=== PATIENT | male | born 1975 | race Caucasian/White ===

== ENCOUNTER 2017-05-14 11:22 | Inpatient (IN) | payer MEDICAID ==
[~2017-05-14] VITALS: Ht 175.3 cm; Wt 70.0 kg
[2017-05-14 11:44] LABS: BASOPHILS 0.7 % (0-2); EOSINOPHILS 8.4 % (0-7); HEMATOCRIT 43.1 % (42.0-54.0); HEMOGLOBIN 15.2 g/dL (13.5-17.5); LYMPHOCYTES 29.7 % (15-50); MCH 32.9 pg (26.0-34.0); MCHC 35.3 g/dL (31.0-37.0); MCV 93.3 fL (80.0-100.0); MEAN PLATELET VOLUME 13.1 fL (7.4-10.4); MONOCYTES 7.7 % (2-11); NEUTROPHILS 53.5 % (40-80); RBC 4.62 10x6/uL (4.20-6.10); RDW 13.3 % (11.5-14.5); WBC 5.5 10x3/uL (4.8-10.8)
[2017-05-14 11:54] LABS: PLATELET COUNT 37 10x3/uL (130-400)
[2017-05-14 11:59] LABS: ALBUMIN 3.7 g/dL (3.4-5.0); ALKALINE PHOSPHATASE 132 U/L (46-116); ALT (SGPT) 19 U/L (10-68); BILIRUBIN - TOTAL 0.48 mg/dL (0.2-1.3); CALC OSMOLALITY 281 mosm/kg (275-300); CALCIUM 8.4 mg/dL (8.5-10.1); CARBON DIOXIDE 26.3 mmol/L (21.0-32.0); CHLORIDE - SERUM 106 mmol/L (98-107); CREATININE - SERUM 1.5 mg/dL (0.6-1.3); GLUCOSE 76 mg/dL (74-106); POTASSIUM - SERUM 4.4 mmol/L (3.5-5.1); PROTEIN - SERUM 7.8 g/dL (6.4-8.2); SODIUM 141 mmol/L (136-145); UREA NITROGEN 17 mg/dL (7-18); eGFR NON AFRICAN AMERICAN 55 mL/min (90-120)
[2017-05-14 12:01] LABS: APTT 49.2 SECONDS (22.8-39.4); INR 0.91 (0.85-1.17); PROTIME 12.1 SECONDS (11.6-15.0)
[2017-05-14 12:07] LABS: PLATELET ESTIMATE DECREASED
[2017-05-14 12:21] LABS: APPEARANCE CLEAR (CLEAR); BILIRUBIN NEGATIVE (NEGATIVE); COLOR YELLOW (YELLOW); GLUCOSE NEGATIVE (NEGATIVE); KETONE NEGATIVE (NEGATIVE); LEUKOCYTE ESTERASE TRACE (NEGATIVE); NITRITE NEGATIVE (NEGATIVE); PROTEIN NEGATIVE (NEGATIVE); UROBILINOGEN NORMAL (NORMAL)
[2017-05-14 12:23] LABS: BACTERIA FEW /hpf (NONE SEEN); RED CELLS - URINE OCC /hpf (0-5)
[2017-05-14 12:33] LABS: UDS - AMPHET NEGATIVE QUAL (NEGATIVE); UDS - BARB NEGATIVE QUAL (NEGATIVE); UDS - BENZO NEGATIVE QUAL (NEGATIVE); UDS - COCAINE NEGATIVE QUAL (NEGATIVE); UDS - METH NEGATIVE QUAL (NEGATIVE); UDS - OPIATE NEGATIVE QUAL (NEGATIVE); UDS - PCP NEGATIVE QUAL (NEGATIVE); UDS - THC POSITIVE QUAL (NEGATIVE)
[2017-05-14 12:46] LABS: MAGNESIUM - SERUM 2.4 mg/dL (1.8-2.4)
[2017-05-14 12:54] LABS: TROPONIN-I 0.068 ng/mL (0.000-0.060)
[2017-05-14 13:45] LABS: CKMB 0.3 U/L (0.0-3.6); CREATINE KINASE 77 UL (21-232)
[2017-05-14 15:32] VITALS: BP 195/88; Ht 175.3 cm; Wt 70.0 kg
[2017-05-14 16:00] VITALS: BP 195/88
[2017-05-14 18:23] LABS: CKMB 0.3 U/L (0.0-3.6); CREATINE KINASE 68 UL (21-232)
--- NOTE | 2017-05-14 19:38 | NUR ---
RESUMED CARE OF PT, LYING IN BED RESPIRATIONS EVEN AND UNLABORED ON ROOM AIR. 60 SR ON TELEMETRY. RIGHT AC SALINE LOCKED. NO NEEDS VOICED AT THIS TIME. CALL LIT IN REACH. WILL CONTINUE TO MONITOR. SEE NURSE ASSESSMENT.
--- NOTE | 2017-05-14 20:59 | NUR ---
CHANDAN BARAHONAARNP NOTIFIED OF CONTINUED HTN 188/. NORVASC 10 GIVEN IN ER FOR . SHE WILL CHECK WITH ER DOCTOR, AWAITING CALL BACK.
[2017-05-14 21:30] VITALS: BP 188/77
[2017-05-14 23:44] LABS: CKMB 0.6 U/L (0.0-3.6); CREATINE KINASE 64 UL (21-232)
[2017-05-14 23:47] LABS: TROPONIN-I 0.073 ng/mL (0.000-0.060)
--- NOTE | 2017-05-15 00:42 | NUR ---
LYING IN BED WITH EYES CLOSED, CALL LIGHT IN REACH. WILL CONTINUE WITH PLAN OF CARE.
[2017-05-15 01:07] VITALS: BP 165/79
[2017-05-15 05:26] VITALS: BP 163/82
--- NOTE | 2017-05-15 06:48 | NUR ---
NO CHANGES FROM PREVIOUS ASSESSMENT, CALL LIGHT IN REACH.
[2017-05-15 07:35] LABS: BASOPHILS 0.8 % (0-2); EOSINOPHILS 9.3 % (0-7); HEMATOCRIT 43.2 % (42.0-54.0); HEMOGLOBIN 14.9 g/dL (13.5-17.5); IMMATURE GRANULOCYTES 0.2 % (0-5); MCH 31.6 pg (26.0-34.0); MCHC 34.5 g/dL (31.0-37.0); MCV 91.5 fL (80.0-100.0); MEAN PLATELET VOLUME 12.9 fL (7.4-10.4); MONOCYTES 7.6 % (2-11); NEUTROPHILS 54.1 % (40-80); RBC 4.72 10x6/uL (4.20-6.10); RDW 13.1 % (11.5-14.5); WBC 4.7 10x3/uL (4.8-10.8)
[2017-05-15 07:53] LABS: PLATELET COUNT 33 10x3/uL (130-400)
[2017-05-15 08:00] VITALS: BP 213/88
--- NOTE | 2017-05-15 08:00 | NUR ---
INTRODUCED MYSELF TO PT PRIMARY RN FOR TODAYS SHIFT. PT IS ALERT AND ORIENTED RESTING QUIELTY SITTING UP IN BED. 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 PT HAS SOME DELAY IN SPEECH BUT HARD TO TELL FROM BASELINE BECAUSE PT DID REPORT HE HAD SOME MILD MR AND WAS IN SPECIAL ED CLASSES. FAMILY CALLED TO CHECK ON HIM AND DID REPORT THIS IS NEW FOR PT SHE COULD TELL HIS SPEECH WAS SLIGHTLY SLURRED BUT BASELINE IS IMPAIRED WELL, PT IS JUST SLOW TO RESPOND AT TIMES AND LOSES TRAIN OF THOUGHT BUT NO SLURRED SPEECH IS NOTED TO ME. PT C/O SAHU AND WAS PROVIDED WITH TYLENOL TO TRY AND RELIEVE SOME OF THE TENSION. PT DENIES ANY FURTHER NEEDS AT THIS TIME. CL IN REACH, BED IN LOWEST, SIDE RAILS X2. WILL CPOC.
[2017-05-15 08:10] LABS: ALBUMIN 3.5 g/dL (3.4-5.0); ALKALINE PHOSPHATASE 119 U/L (46-116); ALT (SGPT) 17 U/L (10-68); CALC OSMOLALITY 276 mosm/kg (275-300); CALCIUM 8.3 mg/dL (8.5-10.1); CHLORIDE - SERUM 105 mmol/L (98-107); CKMB 0.5 U/L (0.0-3.6); CREATINE KINASE 47 UL (21-232); CREATININE - SERUM 1.5 mg/dL (0.6-1.3); GLUCOSE 79 mg/dL (74-106); POTASSIUM - SERUM 4.3 mmol/L (3.5-5.1); PROTEIN - SERUM 7.2 g/dL (6.4-8.2); SODIUM 138 mmol/L (136-145); UREA NITROGEN 19 mg/dL (7-18); eGFR NON AFRICAN AMERICAN 55 mL/min (90-120)
[2017-05-15 12:00] VITALS: BP 163/77
--- NOTE | 2017-05-15 13:59 | NUR ---
PT RESTING QUIETLY IN BED. PT DENIES ANY CURRENT PAIN OR NEEDS AND STATES SAHU HAS BEEN RELIEVED. PT SPEECH STILL SLOW TO RESPOND BUT NO OTHER DEFICITS NOTED. CL IN REACH, BED IN LOWEST, SIDE RAILS X2. WILL CTM.
[2017-05-15 16:00] VITALS: BP 149/71
--- NOTE | 2017-05-15 17:40 | NUR ---
LIPID PROFILE ORDERED FOR CVA CORE MEASURES. NO ANTIPLATELETS ORDERED R/T LOW PLATELETS AND IS A CONTRAINDICATION. PT UP AD SHAKA AND REFUSES TO WEAR HIS SCDS AT THIS TIME BUT HAS BEEN WEARING THEM BEFORE.
--- NOTE | 2017-05-15 18:21 | NUR ---
ENDING ROUNDS BEING COMPLETED. PT STATES HE HAD AN OVERALL GOOD DAY. PT DOES C/O SAHU RETURNING AND REQUESTING PRN TYLENOL AND WILL BE PROVIDED WITH IT. NO FURTHER NEURO DEFICITS NOTED OTHER THAN HIS SLIGHT SPEECH DELAY BUT COULD BE R/T BASELINE SLIGHT SLOW TO RESPOND. PT DENIES ANY FURTHER NEEDS AT THIS TIME. CL IN REACH, BED IN LOWEST, SIDE RAILS X2. WILL CPOC.
[2017-05-15 19:00] VITALS: BP 188/81
--- NOTE | 2017-05-15 20:04 | NUR ---
RESUMED CARE OF PT, LYING IN BED RESPIRATIONS EVEN AND UNLABORED ON ROOM AIR. 64 SR ON TELEMETYR. RIGHT AC SALINE LOCKED. NO NEEDS VOICED AT THIS TIME. CALL LIGHT IN REACH. SEE NURSE ASSESSMENT.
--- NOTE | 2017-05-15 22:50 | NUR ---
RECEIVED PT VIA FROM [facility], PT TO ROOM 1221, TRANSFERS SELF TO BED WITH NO DIFFICULTY, PT ORIENTED TO ROOM, BED IN LOW POSITION, SIDE RAILS X 2, CALL LIGHT IN REACH, PT DENIES NEEDS AT THIS TIME
[2017-05-16 00:50] VITALS: BP 160/78
--- NOTE | 2017-05-16 00:50 | NUR ---
PT RESTING WITH EYES CLOSED, AROUSES TO SOFT VERBAL STIMULATION, VS OBTAINED, NEURO CHECKS DONE, PT DENIES NEEDS OR PAIN AT THIS TIME
--- NOTE | 2017-05-16 02:24 | NUR ---
PT RESTING WITH EYES CLOSED, RESP QUIET, NO DISTRESS NOTED, LEFT UNDISTURBED AT THIS TIME
--- NOTE | 2017-05-16 04:24 | NUR ---
PT RESTING WITH EYES CLOSED, AROUSES TO SOFT VERBAL STIMULATION, VS OBTAINED, NEURO CHECKS DONE, PT DENIES NEEDS OR PAIN AT THIS TIME
[2017-05-16 04:25] VITALS: BP 157/70
--- NOTE | 2017-05-16 04:45 | NUR ---
TELEMETRY CALLED, LEADS OFF, THIS RN TO ROOM, NEW LEADS PLACED
--- NOTE | 2017-05-16 06:07 | NUR ---
PHARMACY NOTIFIED FOR MEDS
--- NOTE | 2017-05-16 06:57 | NUR ---
PT AWAKE, ADM PROTONIX PO PER MD ORDERS, SEE EMAR, PT DENIES NEEDS OR PAIN AT THIS TIME
[2017-05-16 07:02] LABS: BASOPHILS 0.4 % (0-2); EOSINOPHILS 6.6 % (0-7); HEMATOCRIT 43.9 % (42.0-54.0); HEMOGLOBIN 15.5 g/dL (13.5-17.5); IMMATURE GRANULOCYTES 0.2 % (0-5); LYMPHOCYTES 23.6 % (15-50); MCH 32.2 pg (26.0-34.0); MCHC 35.3 g/dL (31.0-37.0); MCV 91.3 fL (80.0-100.0); MONOCYTES 9.2 % (2-11); RBC 4.81 10x6/uL (4.20-6.10); RDW 13.2 % (11.5-14.5); WBC 5.6 10x3/uL (4.8-10.8)
[2017-05-16 07:05] LABS: PLATELET COUNT 27 10x3/uL (130-400)
--- NOTE | 2017-05-16 07:15 | NUR ---
SHIFT REPORT TO JENNY ESTRADA RN
[2017-05-16 07:24] LABS: ALBUMIN 3.6 g/dL (3.4-5.0); ANION GAP 14.7 mmol/L (8-16); BILIRUBIN - TOTAL 0.5 mg/dL (0.2-1.3); CALCIUM 8.1 mg/dL (8.5-10.1); CARBON DIOXIDE 24.5 mmol/L (21.0-32.0); CHOL - HDL RATIO 4.3 ratio (2.3-4.9); CREATININE - SERUM 1.3 mg/dL (0.6-1.3); LDL-HDL RATIO 2.7 ratio (1.5-3.5); POTASSIUM - SERUM 4.2 mmol/L (3.5-5.1); PROTEIN - SERUM 7.4 g/dL (6.4-8.2)
[2017-05-16 07:30] VITALS: BP 127/67
--- NOTE | 2017-05-16 11:28 | NUR ---
PATIENT RESTING IN HIS BED WATCHING TV. DENIES NEEDS.
[2017-05-16 14:35] VITALS: BP 145/77
--- NOTE | 2017-05-16 14:38 | NUR ---
PT LYING IN BED SUPINE, HOB APPROX 45 DEGREES. VS OBTAINED, SEE FLOWSHEET FOR DOC. PT PROVIDED WITH FRESH ICE WATER, DENIES NEEDS. SRUx2, CL IN REACH.
--- NOTE | 2017-05-16 17:00 | NUR ---
PATIENT SITTING UP IN BEDSIDE CHAIR IV SL FLUSHED WITH 10CC OF NS. NO SWELLING OR IRRITATION NOTED AROUND THE INSERTION SITE.
--- NOTE | 2017-05-16 19:00 | NUR ---
PT RESTING, AROUSES TO OPENING OF DOOR, INFORMED PT THAT I WILL BE BACK SHORTLY TO DO ASSESSMENT, PT VERBALIZES UNDERSTANDING, DENIES NEEDS AT THIS TIME
[2017-05-16 20:35] VITALS: BP 136/71
--- NOTE | 2017-05-16 20:35 | NUR ---
ASSESSMENT PER FLOW SHEET, VS OBTAINED, PT REPORTS FLATUS, BM TODAY AND VOIDING WITH NO DIFFICULTY, SALINE LOCK IN RIGHT AC INTACT WITH NO REDNESS OR EDEMA, INFORMED PT THAT I WILL ASSIST HIM GETTING UP TO SHOWER, PT VERBALIZES UNDERSTANDING, STATES "THAT WILL BE GREAT", SALINE LOCK COVERED, SHOWER CHAIR, SOAP/SHAMPOO, TOWELS, WASH CLOTHS, CLEAN GOWN, AND SOCKS PROVIDED, PT UP TO SHOWER, GAIT STEADY, BEDDING CHANGED, PT OUT OF SHOWER, CLEAN GOWN APPLIED, PT PUT SOCKS ON, PT BACK TO BED, TELEMETRY PLACED BACK ON, FRESH H20 SERVED, DENIES FURTHER NEEDS
--- NOTE | 2017-05-16 21:13 | NUR ---
PT REPORTS SLIGHT SAHU, ADM TYLENOL PO PER MD ORDERS, DENIES FURTHER NEEDS
--- NOTE | 2017-05-16 22:30 | NUR ---
PT RESTING WITH EYES CLOSED, RESP QUIET, NO DISTRESS NOTED, LEFT UNDISTURBED AT THIS TIME
[2017-05-17 00:30] VITALS: BP 141/74
--- NOTE | 2017-05-17 00:30 | NUR ---
PT RESTING WITH EYES CLOSED, AROUSES TO SOFT VERBAL STIMULATION, VS OBTAINED, DENIES NEEDS OR PAIN AT THIS TIME
--- NOTE | 2017-05-17 01:30 | NUR ---
PT RESTING WITH EYES CLOSED, RESP QUIET, NO DISTRESS NOTED, LEFT UNDISTURBED AT THIS TIME
--- NOTE | 2017-05-17 03:20 | NUR ---
PT RESTING WITH EYES CLOSED, RESP QUIET, NO DISTRESS NOTED, LEFT UNDISTURBED AT THIS TIME
--- NOTE | 2017-05-17 05:47 | NUR ---
PT RESTING WITH EYES CLOSED, AROUSES TO SOFT VERBAL STIMUALTION, VS OBTAINED, ADM 0600 MED PO PER MD ORDERS, PT DENIES NEEDS OR PAIN AT THIS TIME
[2017-05-17 05:48] VITALS: BP 147/70
--- NOTE | 2017-05-17 06:44 | NUR ---
PT UP TO BEDSIDE SCALE, OBTAINED WEIGHT, BACK TO BED, REQUESTED AND SERVED LEMON [employer] GRAN[employer] B[employer] SODA, DENIES FURTHER NEEDS
--- NOTE | 2017-05-17 07:00 | NUR ---
SHIFT REPORT TO JENNY ESTRADA RN
[2017-05-17 07:29] LABS: BASOPHILS 0.9 % (0-2); EOSINOPHILS 7.1 % (0-7); HEMATOCRIT 41.9 % (42.0-54.0); HEMOGLOBIN 14.7 g/dL (13.5-17.5); IMMATURE GRANULOCYTES 0.2 % (0-5); LYMPHOCYTES 28.7 % (15-50); MCH 32.1 pg (26.0-34.0); MCHC 35.1 g/dL (31.0-37.0); MCV 91.5 fL (80.0-100.0); MONOCYTES 8.4 % (2-11); NEUTROPHILS 54.7 % (40-80); RBC 4.58 10x6/uL (4.20-6.10); RDW 13.3 % (11.5-14.5); WBC 4.6 10x3/uL (4.8-10.8)
[2017-05-17 07:35] LABS: PLATELET COUNT 26 10x3/uL (130-400)
[2017-05-17 07:58] LABS: ALBUMIN 3.6 g/dL (3.4-5.0); ANION GAP 12.6 mmol/L (8-16); BILIRUBIN - TOTAL 0.58 mg/dL (0.2-1.3); CALCIUM 8.4 mg/dL (8.5-10.1); CARBON DIOXIDE 24.4 mmol/L (21.0-32.0); CREATININE - SERUM 1.2 mg/dL (0.6-1.3); PROTEIN - SERUM 7.4 g/dL (6.4-8.2)
--- NOTE | 2017-05-17 08:30 | NUR ---
PATEINT SITTING UP IN THE BEDSIDE CHAIR, DENIED NEEDS. HE STATES HTAT HE TOOK A SHOWER LAST NIGHT. EATING HIS BREAKFAST AT THIS TIME. CALL LIGHT IS WITHIN HIS REACH. ENCOURAGED TO CALL WITH ANY NEEDS. MONITORING.
[2017-05-17 08:40] VITALS: BP 164/81
--- NOTE | 2017-05-17 10:59 | NUR ---
PATIENT AMBULATING IN THE HALLWAY TO DESK. DENIES NEEDS, TOOK NEWSPAPER TO READ. BACK TO HIS ROOM. GAIT STABLE
--- NOTE | 2017-05-17 12:26 | NUR ---
PATIENT SITTING UP IN HIS BED WATCHING TV. DENIES NEEDS.
--- NOTE | 2017-05-17 12:44 | NUR ---
PATIENT OFF THE UNIT FOR BONE MARROW BIOPSY. WE DISCUSSED THE PURPOSE OF EXAM AND HE VOICES UNDERSTANDING, MAKING JOKE ABOUT HIS SELF BEING A MYSTERY.
[2017-05-17 13:21] LABS: HEPATITIS C ANTIBODY <0.1 (0.0-0.9)
--- NOTE | 2017-05-17 14:27 | NUR ---
ARISTEO RETURNED FROM [place] IN HIS BED FROM THE BONE MARROW BIOPSY. HE REQUESTS PAIN MEDICATION.
[2017-05-17 20:05] VITALS: BP 151/88
--- NOTE | 2017-05-17 20:05 | NUR ---
AWAKE DURING INITIAL ROUNDS. INTRODUCED SELF. V/S TAKEN. ASSESSMENT DONE. STATUS R/O TIA vs CVA. PT SITTING ON THE CHAIR TALKING ON THE PHONE. APPEARS COHERENT. SALINE LOCK TO R ac. PAIN LEVEL "12"/10 FROM SACRAL AREA--SITE FROM BONE MARROW BIOPSY.
--- NOTE | 2017-05-17 21:01 | NUR ---
AMBULATING IN THE BRANCH. GAIT STEADY.
--- NOTE | 2017-05-17 21:49 | NUR ---
TYLENOL 650mg PO GIVEN FOR PAIN CONTROL.
[2017-05-17 23:29] VITALS: BP 139/75
--- NOTE | 2017-05-18 | NUR ---
EYES CLOSED. LEFT UNDISTURBED.
--- NOTE | 2017-05-18 02:10 | NUR ---
APPEARS TO BE ASLEEP.
--- NOTE | 2017-05-18 06:02 | NUR ---
SLEPT FAIRLY WELL DURING THE NIGHT. CONTINUING PLAN OF CARE. ANTICIPATES DISCHARGE TODAY. INDUSTRIAL CHEMISTRY TEACHER HERE TO DRAW AM LAB.
[2017-05-18 06:27] LABS: EOSINOPHILS 8.1 % (0-7); HEMATOCRIT 40.6 % (42.0-54.0); HEMOGLOBIN 14.2 g/dL (13.5-17.5); IMMATURE GRANULOCYTES 0.3 % (0-5); LYMPHOCYTES 31.5 % (15-50); MCH 31.7 pg (26.0-34.0); MCV 90.6 fL (80.0-100.0); MONOCYTES 11.4 % (2-11); NEUTROPHILS 47.7 % (40-80); RBC 4.48 10x6/uL (4.20-6.10); RDW 13.2 % (11.5-14.5); WBC 3.9 10x3/uL (4.8-10.8)
[2017-05-18 06:36] LABS: PLATELET COUNT 20 10x3/uL (130-400)
[2017-05-18 06:54] LABS: ALBUMIN 3.6 g/dL (3.4-5.0); ANION GAP 15.6 mmol/L (8-16); BILIRUBIN - TOTAL 0.49 mg/dL (0.2-1.3); CARBON DIOXIDE 23.6 mmol/L (21.0-32.0); CREATININE - SERUM 1.3 mg/dL (0.6-1.3); POTASSIUM - SERUM 4.2 mmol/L (3.5-5.1); PROTEIN - SERUM 7.3 g/dL (6.4-8.2)
[2017-05-18 07:30] VITALS: BP 126/72
--- NOTE | 2017-05-18 07:30 | NUR ---
PT IS SITTING UP ON THE SIDE OF THE BED GETTING READY TO EAT BREAKFAST. HE OFFERS NO COMPLAINTS BUT WHEN ASKED ABOUT HIS PAIN LEVEL HE STAES A 12. I TOLD BETWEEEN 1 AND 10 AND HE STATES IT IS A 8 IN HIS BACK. GEN- AWAKE AND ALERT. LUNGS- CLEAR. HEART- RRR. ABD- SOFT, NONTENDER. EXT- ABLE TO MOVE ALL EXTREMITIES. ABLE TO SQUEEZE BOTH MY HANDS. BED IS LOW, SIDE RAILS UP X 2 AND CALL LIGHT IN REACH. SALINE LOCK R AC. PATENT.
--- NOTE | 2017-05-18 08:18 | NUR ---
PT IS RESTING IN BED. OFFERS NO COMPLAINTS AT THIS TIME.
--- NOTE | 2017-05-18 09:31 | NUR ---
PT IS SITTING UP ON SIDE OF BED, TALKING ON PHONE. HE STATES THAT HE WOULD LIKE TYLENOL FOR HIS BACK PAIN WHICH HE RATES AN 8/10. BED IS LOW, SIDE RAILS UP X 2 AND CALL LIGHT IN REACH.
--- NOTE | 2017-05-18 09:48 | NUR ---
PT IS SITTING UP ON SIDE OF BED. 0900 MEDS GIVEN. HE STATES HIS PAIN IS NOW A 6/10.
--- NOTE | 2017-05-18 09:57 | NUR ---
* Is the patient Alert and Oriented? Yes 0 * How many steps to enter\exit or inside your home? 4 0 * PCP Dr. Guerra 0 * Pharmacy [facility] 0 * Preadmission Environment Home Alone 0 * ADLs Independent 0 * List name and contact numbers for known caregivers / representatives who currently or will assist patient after discharge: Ford Quevedo [phone] 0 * Additional services required to return to the preadmission environment? No 0 * Can the patient safely return to the preadmission environment? Yes 0 * Has this patient been hospitalized within the prior 30 days at any hospital? No 05/18/2017 9:58 DCP: Discharge Planning Patient Name: STERLING HERNANDEZ Admission Status: ER Accout number: [id number] Admission Date: 05-14-2017 : 1975 Admission Diagnosis: Attending: ANDREW Current LOS: 4 Anticipated DC Date: 05-20-2017 Planned Disposition: Home Primary Insurance: MEDICAID [place] Discharge Planning Comments: CM met with patient to assess dc plans/needs. Patient states he lives alone & is independent with all ADL's. He has not had home health services and does not use any assistive devices for mobility. He does not drive. He states his cousin, Emy, takes him shopping and to medical appointments. He states she also assists with any other needs he may have. At me, he plans to return home. He may benefit from home health evaluation after discharge. CM will follow. Trading Specialist: Carline Reed
--- NOTE | 2017-05-18 11:40 | NUR ---
PT IS SITTING UP IN CHAIR. OFFERS NO COMPLAINTS.
--- NOTE | 2017-05-18 13:27 | NUR ---
PT IS UP AMBULATING IN THE HALLWAY. HE STATES HE IS WAITING FOR HIS DR TO TELL HIM WHAT IS GOING ON. PT BACK TO ROOM AND LYING IN BED.
--- NOTE | 2017-05-18 14:00 | NUR ---
AMELIA DE OLIVEIRA WITH DR QUIÑONEZ WAS HERE TO SEE PT. SHE DID NOT THE PLAN OF NOW, BUT STATES HIS PLATELETS WERE 20. DR TIJERINA HAS BEEN CONSULTED AND SAW PT YESTERDAY.
--- NOTE | 2017-05-18 15:00 | NUR ---
PT IS IN HIS ROOM SITTING UP IN CHAIR. HE IS PLAYING DOMINOES WITH SOME FRIENDS AND IS REALLY ENJOYING IT.
--- NOTE | 2017-05-18 16:16 | NUR ---
LAB IS HERE TO DRAW HIS BLOOD. PT BACK TO BED. BED IS LOW, SIDE RAILS UP X 2 AND CALL LIGHT IN REACH.
--- NOTE | 2017-05-18 16:59 | NUR ---
DR TIJERINA HERE TO SEE PT. NEW ORDERS NOTED. PLATLETS WERE ORDERED TO GIVE PT. I UNIT OF PLATELETS.
--- NOTE | 2017-05-18 17:59 | NUR ---
PLATELET APHERESIS INITIATED. WITNESSED WITH FLAVIO MAYO RN. VSS
[2017-05-18 18:55] VITALS: BP 139/74
--- NOTE | 2017-05-18 18:55 | NUR ---
PT RECEIVED LYING IN BED AAOX3 WATCHING TV AT THIS TIME. PT RATES PAIN 0/10 AT THIS TIME. S/L NOTED TO RIGHT A/C DRESSING CDI. HEART RRR. LUNG SOUNDS CLEAR BILATERALLY. BOWEL SOUNDS ACTIVE X4 QUADRENTS. PEDAL PULSES EQUAL BILATERALLY. VSS. PT DENIES NEEDS AT THIS TIME. BED LOW. PHONE AND CALL LIGHT IN REACH. SRX2.
--- NOTE | 2017-05-18 20:09 | NUR ---
PT LYING IN BED WATCHING TV AT THIS TIME. DENIES NEEDS. BED LOW. PHONE AND CALL LIGHT IN REACH. SRX2.
--- NOTE | 2017-05-18 21:07 | NUR ---
TYLENOL PO GIVEN AT THIS TIME PER PT REQUEST FOR PAIN PT RATES 06/05. PT DENIES OTHER NEEDS. BED LOW. PHONE AND CALL LIGHT IN REACH. SRX2.
--- NOTE | 2017-05-18 22:04 | NUR ---
PT RESTING QUIETLY AT THIS TIME WITH EYES CLOSED. RESPIRATIONS EVEN, NON-LABORED. NO ACUTE DISTRESS NOTED AT THIS TIME. BED LOW. PHONE AND CALL LIGHT IN REACH. SRX2.
[2017-05-19] VITALS: BP 159/67
--- NOTE | 2017-05-19 | NUR ---
PT RESTING QUIETLY AT THIS TIME WITH EYES CLOSED. AROUSED EASILY. PT DENIES NEEDS. BED LOW. PHONE AND CALL LIGHT IN REACH. SRX2.
[2017-05-19 04:06] VITALS: BP 167/77
--- NOTE | 2017-05-19 04:06 | NUR ---
PT RESTING QUIETLY AT THIS TIME WITH EYES CLOSED. AROUSED EASILY. DENIES NEEDS. BED LOW. PHONE AND CALL LIGHT IN REACH. SRX2.
--- NOTE | 2017-05-19 06:09 | NUR ---
PROTONIX PO GIVEN PER ORDERS AT THIS TIME. PT DENIES NEEDS. BED LOW. PHONE AND CALL LIGHT IN REACH. SRX2.
[2017-05-19 06:50] LABS: EOSINOPHILS 8.2 % (0-7); HEMOGLOBIN 13.7 g/dL (13.5-17.5); LYMPHOCYTES 29.3 % (15-50); MCH 31.7 pg (26.0-34.0); MCHC 35.1 g/dL (31.0-37.0); MCV 90.3 fL (80.0-100.0); MEAN PLATELET VOLUME 11.2 fL (7.4-10.4); MONOCYTES 11.1 % (2-11); NEUTROPHILS 50.4 % (40-80); RBC 4.32 10x6/uL (4.20-6.10); WBC 4.2 10x3/uL (4.8-10.8)
[2017-05-19 07:12] LABS: ALBUMIN 3.5 g/dL (3.4-5.0); ANION GAP 12.6 mmol/L (8-16); BILIRUBIN - TOTAL 0.6 mg/dL (0.2-1.3); CARBON DIOXIDE 25.4 mmol/L (21.0-32.0); CREATININE - SERUM 1.3 mg/dL (0.6-1.3); PROTEIN - SERUM 7.1 g/dL (6.4-8.2)
[2017-05-19 07:27] LABS: FOLATE (FOLIC ACID) - SERUM 12.7 ng/mL (>3.0)
[2017-05-19 07:28] LABS: PLATELET COUNT 30 10x3/uL (130-400)
--- NOTE | 2017-05-19 08:30 | NUR ---
PATIENT GIVEN MORNING MEDICATION. HE C/O BACK PAIN THAT HE RATES AN 8 BUT STATES THAT OVERALL HE FEELS MUCH BETTER THAN HE DID THIS MORNING. OFFERED TOWELS AND CLEAN LINENS FOR A SHOWER. HE SAID THAT HE WILL GET UP LATER.
[2017-05-19 08:53] VITALS: BP 154/84
--- NOTE | 2017-05-19 09:11 | NUR ---
PATIENT RATES HIS BACK PAIN A 3. STATES THAT TE MEDICATION DID HELP WITH THE BACK DISCOMFORT.
--- NOTE | 2017-05-19 12:30 | NUR ---
PATIENT HAS HAD A SHOWER AND EATEN LUNCH. IV TO THE RIGHT FA IS SORE AND RED AROUND THE INSERTION SITE. REMOVED IT WITH THE CATHETER FULLY INTACT AND NEW IV SL PLACED IN THE LEFT AC ON THE SECOND ATTEMPT. PATIENT DENIES NEEDS. CALL LIGHT AND COUSIN AT THE BEDSIDE.
--- NOTE | 2017-05-19 14:31 | NUR ---
PLATLETS INFUSED WITHOUT S/S OF REACTION. WAREHOUSE SHIPPING ASSOCIATE HERE TO ASSESS. QUESTIONS ANSWERED WITH HIS COUSIN AT THE BEDSIDE. HE LIVES INDEPENDENTLY, THEY SPEAK DAILY. THEY WERE RAISED TOGETHER AND SHE IS THE ONE THAT BROUGHT HIM INTO THE HOSPITAL.
--- NOTE | 2017-05-19 15:31 | NUR ---
PATIENT UP AMBULATING IN THE HALLS. HE IS WITHOUT STATED NEEDS.
--- NOTE | 2017-05-19 18:22 | NUR ---
PT ARRIVED TO UNIT AND HAS BEEN ORIENTED TO ROOM. PT IS A&O RESTING COMFORTABLY ON HIS BED. VITALS 98.5 TEMP, RR 16 AND RRR ON RA. BP 177/76 VIA R.ARM, HR 63, AND O2 SATS OF 95% PT DENIES ANY CURRENT PAIN OR NEEDS. CL IN REACH, BED IN LOWEST, SIDE RAILS X2. WILL CTM.
[2017-05-19 19:00] VITALS: BP 168/78
--- NOTE | 2017-05-19 20:12 | NUR ---
PT RESTING QUIETLY, C/O MILD DISCOMFORT WHERE PROCEDURE WAS DONE EARLIER TODAY. PT ALERT & ORIENTED, NO S/S OF ACUTE DISTRESS.
[2017-05-20] VITALS: BP 141/70
--- NOTE | 2017-05-20 01:10 | NUR ---
PT RESTING QUIETLY ON RIGHT SIDE, NO S/S OF ACUTE DISTRESS, EYES CLOSED, RESPIRATIONS REGULAR AND UNLABORED.
--- NOTE | 2017-05-20 03:04 | NUR ---
PT RESTING QUIETLY, RESPIRATIONS REGULAR AND UNLABORED.
[2017-05-20 04:00] VITALS: BP 166/76
[2017-05-20 06:40] LABS: BASOPHILS 0.8 % (0-2); EOSINOPHILS 8.5 % (0-7); HEMATOCRIT 38.1 % (42.0-54.0); HEMOGLOBIN 13.3 g/dL (13.5-17.5); LYMPHOCYTES 31.6 % (15-50); MCH 31.8 pg (26.0-34.0); MCHC 34.9 g/dL (31.0-37.0); MCV 91.1 fL (80.0-100.0); MEAN PLATELET VOLUME 12.6 fL (7.4-10.4); MONOCYTES 11.3 % (2-11); NEUTROPHILS 47.8 % (40-80); RBC 4.18 10x6/uL (4.20-6.10); WBC 3.6 10x3/uL (4.8-10.8)
[2017-05-20 06:44] LABS: PLATELET COUNT 38 10x3/uL (130-400)
--- NOTE | 2017-05-20 06:49 | NUR ---
PT RESTING QUIETLY, RESPIRATIONS REGULAR AND UNLABORED.
[2017-05-20 06:52] LABS: ALBUMIN 3.5 g/dL (3.4-5.0); ANION GAP 11.9 mmol/L (8-16); BILIRUBIN - TOTAL 0.52 mg/dL (0.2-1.3); CALCIUM 8.2 mg/dL (8.5-10.1); CARBON DIOXIDE 27.1 mmol/L (21.0-32.0); CREATININE - SERUM 1.3 mg/dL (0.6-1.3); PROTEIN - SERUM 7.4 g/dL (6.4-8.2)
[2017-05-20 08:00] VITALS: BP 161/71
--- NOTE | 2017-05-20 08:20 | NUR ---
ASSESSMENT DONE. DENIES NEEDS.
--- NOTE | 2017-05-20 10:14 | NUR ---
RESTS IN BED WITH CALL LIGHT IN REACH. DOM NEEDS AT THIS TIME. WILL CONT. PLAN OF CARE.
[2017-05-20 12:00] VITALS: BP 171/69
[2017-05-20 16:00] VITALS: BP 147/75
--- NOTE | 2017-05-20 17:42 | NUR ---
WITHOUT CHANGES OR DISTRESS NOTED AT THIS TIME. FAMILY AT SIDE.
[2017-05-20 19:00] VITALS: BP 144/75
--- NOTE | 2017-05-20 19:20 | NUR ---
PT UP AROUND ROOM. IV TO LEFT AC SALINE LOCKED. DENIES PAIN OR NEEDS AT THIS TIME. IV TO LEFT AC SALINE LOCKED. WILL CONT TO MONITOR.
[2017-05-21] VITALS: BP 147/63
[2017-05-21 04:00] VITALS: BP 143/58
[2017-05-21 05:31] LABS: BASOPHILS 0.4 % (0-2); HEMATOCRIT 36.6 % (42.0-54.0); HEMOGLOBIN 12.8 g/dL (13.5-17.5); LYMPHOCYTES 29.3 % (15-50); MCH 31.4 pg (26.0-34.0); MCV 89.7 fL (80.0-100.0); MEAN PLATELET VOLUME 13.3 fL (7.4-10.4); MONOCYTES 11.4 % (2-11); NEUTROPHILS 57.9 % (40-80); RBC 4.08 10x6/uL (4.20-6.10); RDW 12.6 % (11.5-14.5)
[2017-05-21 05:36] LABS: PLATELET COUNT 38 10x3/uL (130-400)
[2017-05-21 05:47] LABS: ALBUMIN 3.5 g/dL (3.4-5.0); ANION GAP 13.4 mmol/L (8-16); BILIRUBIN - TOTAL 0.41 mg/dL (0.2-1.3); CALCIUM 8.4 mg/dL (8.5-10.1); CARBON DIOXIDE 23.4 mmol/L (21.0-32.0); CREATININE - SERUM 1.2 mg/dL (0.6-1.3); POTASSIUM - SERUM 3.8 mmol/L (3.5-5.1)
--- NOTE | 2017-05-21 07:45 | NUR ---
INTRODUCED MYSELF TO PT PRIMARY RN FOR TODAYS SHIFT. PT A&O RESTING IN BED WATCHING TV. SHIFT ASSESSMENT COMPLETED. PT VERY CHEERFUL AND HOPING TO BE DISCHARGED TODAY. PT DENIES ANY CURRENT PAIN OR NEEDS AT THIS TIME. CL IN REACH, BED IN LOWEST, SIDE RAILS X2. WILL CPOC.
[2017-05-21 08:00] VITALS: BP 164/71
--- NOTE | 2017-05-21 10:20 | NUR ---
PT UP AMBULATING IN BRANCH. STATES "IM FEELING PRETTY GOOD AND READY TO GO HOME, WAITING ON THE DOC" DENIES ANY CURRENT PAIN OR NEEDS. WILL CTM.
[2017-05-21] MEDS ORDERED: NICODERM C1 PATCH .1 TRANSDERM (11:52)
[2017-05-21] MEDS ORDERED: BYSTOLIC2.5 MG PO (11:52)
[2017-05-21] MEDS ORDERED: PRAVACHOL20 MG PO (11:52)
[2017-05-21] MEDS ORDERED: PROTONIX40 MG PO (11:52)
[2017-05-21] MEDS ORDERED: NORVASC10 MG PO (11:52)
[2017-05-21] MEDS ORDERED: PREDNISONE20 MG PO (11:52)
[2017-05-21 12:00] VITALS: BP 130/73
--- NOTE | 2017-05-21 13:51 | NUR ---
D/C PTS L.AC PIV WITH CATHETER TIP FULLY INTACT. PT READY TO BE DISCHARGED JUST AWAITING PAPERS. WILL CTM.
--- NOTE | 2017-05-22 15:02 | EC ---
PATIENT:STERLING HERNANDEZ DATE OF SERVICE: 05/14/17 SEX: M MEDICAL RECORD: [id number] DATE OF : [birth year] LOCATION:D.M2 D.213 AGE OF PATIENT: 41 ADMISSION DATE: 05/14/17 REFERRING PHYSICIAN: INTERPRETING PHYSICIAN: GANGA MALIN MD ECHOCARDIOGRAM REPORT ECHO CHARGES 4 ECHO COMPLETE CLINICAL DIAGNOSIS: ELEVATED TROPONIN/DYSPNEA ECHOCARDIOGRAPHIC MEASUREMENTS (adult normal given) AC root (d.<3.7cm) 3.8 LV Septum d (<1.2 cm> 1.7 Valve Excursion 2.2 LV Septum (systole) 2.6 Left Atria (s.<4.0cm> 3.0 LVPW d(<1.2cm) 1.6 RV (d.<2.3cm) 2.3 LVPW (sytole) 2.5 LV diastole(<5.6CM) 7.3 MV E-F(>70mm/sec) LV systole 4.2 LVOT Diameter 2.4 MV exc.(>10mm) Est.ejection fraction (50-75%) Pericardial Effusion N DOPPLER: LVIT A 81.0 E 93.0 LA RVSP 32.0 LVOT 116 AOP1/2T 458.0 Asc. Ao 360 RVOT 71.0 RA PA 105 AV Gradient Peak 52.0 AV Mean 28.0 AV Area 1.5 MV Gradient Peak 4.3 MV Mean 1.7 MV Area COMMENTS: Data Entry Technician: Ana Luisa JOHNSONOE Music Historian:1 Dr. Malin TAPE# PACS DATE OF SERVICE: 05/14/2017 Echocardiogram FINDINGS: 1. Left ventricular chamber size is within normal limits. Left ventricular systolic function is normal. Overall ejection fraction estimated at 55%. 2. Left atrium, right atrium, and right ventricular chamber sizes are within normal limits. 3. Valvular structures: Aortic valve is a bicuspid valve demonstrating mild ECHOCARDIOGRAM REPORT [id number] STERLING HERNANDEZ aortic stenosis. Valve area calculates to 1.5 cm-squared. There was a gradient of 52-mm across the valve. The remaining valvular structures have normal structure and motion. 4. Doppler interrogation elsewise reveals moderate aortic insufficiency, mild mitral regurgitation, mild tricuspid regurgitation, no other valvular insufficiency or stenosis and pulmonary systolic pressure is normal estimated at 32 mmHg. 5. No evidence of pericardial effusion or left ventricular thrombus. TRANSINT:[id number] Voice Confirmation ID: [id number] DOCUMENT ID: [id number] GANGA MALIN MD at 1502 CC: [id number] DICTATION DATE: 05/15/17 1140 WEB FEEDER: 05/15/17 1650 DIS IN 05/21/17 [facility] [address] [id number]
== END 2017-05-21 16:01 | disposition home or self-care (01) | DRG 65 ==
LOC: D.ER 11:22 → D.WS 13:55 → D.M2 13:55 → D.WS 05-15 22:51 → D.M2 05-19 18:08
PROVIDERS: Emergency Medicine; Family Medicine; General Practice; Internal Medicine Hematology & Oncology; Nurse Practitioner Family; ADMIT Family Medicine Adult Medicine
PROC: 07DR3ZX Extraction of Iliac Bone Marrow, Percutaneous Approach, Diagnostic (ICD-10-PCS; principal; 2017-05-17 13:20)
DX: I63.511 Cerebral infarction due to unspecified occlusion or stenosis of right middle cerebral artery (principal); G81.94 Hemiplegia, unspecified affecting left nondominant side; I24.8 Other forms of acute ischemic heart disease; D69.3 Immune thrombocytopenic purpura; I16.0 Hypertensive urgency; R94.31 Abnormal electrocardiogram [ECG] [EKG]; I08.3 Combined rheumatic disorders of mitral, aortic and tricuspid valves; Z72.0 Tobacco use; G40.909 Epilepsy, unspecified, not intractable, without status epilepticus; R40.2363 Coma scale, best motor response, obeys commands, at hospital admission; R40.2143 Coma scale, eyes open, spontaneous, at hospital admission; R40.2253 Coma scale, best verbal response, oriented, at hospital admission

== ENCOUNTER 2017-06-11 09:39 | Emergency (ER) | payer MEDICAID ==
[2017-05-14 15:32] VITALS: BMI 23.9
[~2017-06-11 09:39] MED LIST: BYSTOLIC2.5 MG PO; NICODERM C1 PATCH .1 TRANSDERM; NORVASC10 MG PO; PRAVACHOL20 MG PO; PREDNISONE20 MG PO; PROTONIX40 MG PO
[2017-06-11 10:30] LABS: BASOPHILS 0.1 % (0-2); EOSINOPHILS 0.4 % (0-7); IMMATURE GRANULOCYTES 0.2 % (0-5); LYMPHOCYTES 2.7 % (15-50); MCH 31.9 pg (26.0-34.0); MCHC 34.1 g/dL (31.0-37.0); MCV 93.4 fL (80.0-100.0); MEAN PLATELET VOLUME 12.8 fL (7.4-10.4); MONOCYTES 3.8 % (2-11); NEUTROPHILS 92.8 % (40-80); RBC 4.39 10x6/uL (4.20-6.10); RDW 13.2 % (11.5-14.5); WBC 15.4 10x3/uL (4.8-10.8)
[2017-06-11 10:34] LABS: PLATELET COUNT 46 10x3/uL (130-400)
[2017-06-11 10:44] LABS: ALBUMIN 3.4 g/dL (3.4-5.0); ALKALINE PHOSPHATASE 95 U/L (46-116); ALT (SGPT) 24 U/L (10-68); BILIRUBIN - TOTAL 0.21 mg/dL (0.2-1.3); CALC OSMOLALITY 287 mosm/kg (275-300); CALCIUM 8.2 mg/dL (8.5-10.1); CHLORIDE - SERUM 108 mmol/L (98-107); CREATININE - SERUM 1.4 mg/dL (0.6-1.3); GLUCOSE 93 mg/dL (74-106); POTASSIUM - SERUM 4.2 mmol/L (3.5-5.1); PROTEIN - SERUM 7.1 g/dL (6.4-8.2); SODIUM 142 mmol/L (136-145); UREA NITROGEN 27 mg/dL (7-18); eGFR NON AFRICAN AMERICAN 59 mL/min (90-120)
[2017-06-11 10:46] LABS: PLATELET ESTIMATE DECREASED
[2017-06-11 10:47] LABS: CREATINE KINASE 45 UL (21-232); MAGNESIUM - SERUM 2.9 mg/dL (1.8-2.4); TROPONIN-I < 0.017 ng/mL (0.000-0.060)
[2017-06-11 11:22] LABS: APPEARANCE CLEAR (CLEAR); BILIRUBIN NEGATIVE (NEGATIVE); COLOR YELLOW (YELLOW); GLUCOSE NEGATIVE (NEGATIVE); KETONE NEGATIVE (NEGATIVE); LEUKOCYTE ESTERASE NEGATIVE (NEGATIVE); NITRITE NEGATIVE (NEGATIVE); PROTEIN NEGATIVE (NEGATIVE); UROBILINOGEN NORMAL (NORMAL)
[2017-06-11 11:26] LABS: UDS - AMPHET NEGATIVE QUAL (NEGATIVE); UDS - BARB NEGATIVE QUAL (NEGATIVE); UDS - BENZO NEGATIVE QUAL (NEGATIVE); UDS - COCAINE NEGATIVE QUAL (NEGATIVE); UDS - METH NEGATIVE QUAL (NEGATIVE); UDS - OPIATE NEGATIVE QUAL (NEGATIVE); UDS - PCP NEGATIVE QUAL (NEGATIVE); UDS - THC POSITIVE QUAL (NEGATIVE)
== END 2017-06-11 14:21 | disposition home or self-care (01) ==
LOC: D.ER 09:39
PROVIDERS: Nurse Practitioner Family
DX: G40.909 Epilepsy, unspecified, not intractable, without status epilepticus (principal); D69.3 Immune thrombocytopenic purpura; I10 Essential (primary) hypertension; F17.200 Nicotine dependence, unspecified, uncomplicated

== ENCOUNTER 2017-12-17 21:51 | Emergency (ER) | payer MEDICAID ==
[2017-05-14 15:32] VITALS: BMI 23.9
== END 2017-12-18 01:30 | disposition home or self-care (01) ==
LOC: D.ER 21:51
DX: S43.005A Unspecified dislocation of left shoulder joint, initial encounter (principal); X58.XXXA Exposure to other specified factors, initial encounter; Y93.9 Activity, unspecified; Y92.019 Unspecified place in single-family (private) house as the place of occurrence of the external cause; I10 Essential (primary) hypertension